=== PATIENT | female | born 1975 ===

== ENCOUNTER 2018-09-27 03:36 | Emergency (ER) | payer OTHER ==
[2018-09-27 04:16] VITALS: RESP 18; TEMP 96.9
[2018-09-27 05:24] LABS: BASOPHILS % (AUTO) 0 % (0-3); EOSINOPHILS % (AUTO) 0 % (0-9); HEMATOCRIT 44 % (35-47); HEMOGLOBIN 13.8 gm/dl (12.0-15.5); LYMPHOCYTES % (AUTO) 13.5 % (10-50); MEAN CORPUSCULAR HEMOGLOBIN 25.6 pg (27.0-32.0); MEAN CORPUSCULAR HGB CONC 31.5 gm/dl (32.0-36.0); MONOCYTES % (AUTO) 7.2 % (0-12); NEUTROPHILS % (AUTO) 78.8 % (37-80)
[2018-09-27 05:26] LABS: MEAN CORPUSCULAR VOLUME 81 fL (81-99)
[2018-09-27 05:31] LABS: INR 0.94 (0.86-1.12)
[2018-09-27 05:32] LABS: ALCOHOL 0.123 gm/dl (0.000-0.08); CALCIUM 9.3 mg/dl (8.5-10.1); CARBON DIOXIDE 21.5 mEq/L (21-32); CREATININE 1.06 mg/dl (0.60-1.00); POTASSIUM 4.4 mMol/L (3.5-5.1)
[2018-09-27 06:44] LABS: AMPHETAMINES NEGATIVE (NEGATIVE); BARBITUATES NEGATIVE (NEGATIVE); BENZODIAZEPINES NEGATIVE (NEGATIVE); CANNABINOL(THC) POSITIVE (NEGATIVE); COCAINE(COC) NEGATIVE (NEGATIVE); METHADONE NEGATIVE (NEGATIVE); METHAMPHETAMINES NEGATIVE (NEGATIVE); OPIATES(OPI) NEGATIVE (NEGATIVE); OXYCODONE(OXY) NEGATIVE (NEGATIVE); PROPOXYPHENE(PPX) NEGATIVE (NEGATIVE); TRICYCLIC ANTIDEPRESSANTS POSITIVE (NEGATIVE)
[2018-09-27 06:58] VITALS: BP 130/83; PULSE 98; O2SAT 99
== END 2018-09-27 06:45 | disposition home or self-care (01) ==
LOC: ED 03:36
DX: Z04.71 Encounter for examination and observation following alleged adult physical abuse (principal)
CPT/HCPCS: 36415; 70450; 70486; 71046; 73030; 73060; 80048; 80305; 80307; 85025; 85610; 99282; 99283

== ENCOUNTER 2018-10-19 06:03 | Emergency (ER) | payer BC, OTHER ==
[2018-10-19] MEDS: APAP/OXYCODONE 1 EACH TABLET PO ONE ×2 (06:27→06:50)
[2018-10-19 06:32] VITALS: TEMP 97
[2018-10-19 06:36] LABS: BASOPHILS % (AUTO) 1 % (0-3); EOSINOPHILS % (AUTO) 2 % (0-9); HEMATOCRIT 41 % (35-47); HEMOGLOBIN 12.8 gm/dl (12.0-15.5); LYMPHOCYTES % (AUTO) 37.7 % (10-50); MEAN CORPUSCULAR HEMOGLOBIN 25.5 pg (27.0-32.0); MEAN CORPUSCULAR HGB CONC 31.2 gm/dl (32.0-36.0); MEAN CORPUSCULAR VOLUME 82 fL (81-99); MONOCYTES % (AUTO) 8.9 % (0-12); NEUTROPHILS % (AUTO) 50.7 % (37-80)
[2018-10-19] MEDS ORDERED: APAP/OXYCODONE 1 EACH TABLET ONE ×2 (06:50)
[2018-10-19] MEDS ORDERED: ACETAMINOPHEN 500 MG 500 MG TAB PO ONE (06:54)
[2018-10-19] MEDS ORDERED: ACETAMINOPHEN 500 MG 500 MG TAB ONE (06:57)
[2018-10-19 07:02] VITALS: RESP 18; O2SAT 100
[2018-10-19 10:21] VITALS: BP 125/76; PULSE 58
== END 2018-10-19 10:10 | disposition home or self-care (01) ==
LOC: ED 06:03
DX: R10.2 Pelvic and perineal pain (principal); N83.201 Unspecified ovarian cyst, right side; N93.9 Abnormal uterine and vaginal bleeding, unspecified
CPT/HCPCS: 36415; 84703; 85025; 99283; 99284; A9270-GY